=== PATIENT | male | born 1965 | race Two or more races ===

== ENCOUNTER 2018-05-05 16:35 | Emergency (ER) | payer SELFPAY ==
[~2018-05-05] VITALS: Ht 188 cm; Wt 110.0 kg
[2018-05-05] MEDS ORDERED: KETOROLAC 60MG/2ML VIAL IM ONE (17:15)
[2018-05-05 18:28] VITALS: BP 112/51
== END 2018-05-05 18:37 | disposition home or self-care (01) ==
LOC: ER 16:35
DX: S20.20XA Contusion of thorax, unspecified, initial encounter (principal); I10 Essential (primary) hypertension; Z98.890 Other specified postprocedural states; V47.5XXA Car driver injured in collision with fixed or stationary object in traffic accident, initial encounter; Y93.89 Activity, other specified; Y92.488 Other paved roadways as the place of occurrence of the external cause
CPT/HCPCS: 71101; 96372; 99283; J1885

== ENCOUNTER 2018-08-26 10:18 | Emergency (ER) | payer SELFPAY ==
[~2018-08-26] VITALS: Ht 188 cm; Wt 100.0 kg
[2018-08-26] MEDS ORDERED: IBUPROFEN 600MG TABLET PO ONE (14:30)
[2018-08-26 16:22] VITALS: BP 138/90
== END 2018-08-26 16:23 | disposition home or self-care (01) ==
LOC: ER 10:18
DX: S82.142A Displaced bicondylar fracture of left tibia, initial encounter for closed fracture (principal); I10 Essential (primary) hypertension; F12.10 Cannabis abuse, uncomplicated; H54.10 Blindness, one eye, low vision other eye, unspecified eyes; Z98.890 Other specified postprocedural states; Z87.09 Personal history of other diseases of the respiratory system; W17.89XA Other fall from one level to another, initial encounter; Y93.89 Activity, other specified; Y92.89 Other specified places as the place of occurrence of the external cause; Y99.8 Other external cause status
CPT/HCPCS: 29505; 72170; 73560; 73590; 99283; Z7610

== ENCOUNTER 2024-11-12 07:09 | Inpatient (IN) | payer MEDICAID ==
[~2024-11-12] VITALS: Ht 185.4 cm; Wt 87.5 kg
[2024-11-12 07:20] VITALS: O2SAT 98
[2024-11-12 08:06] LABS: BASOPHILS % 0.4 % (0.0-2.0); EOSINOPHILS % 0.6 % (0.0-5.0); HEMATOCRIT. 43.4 % (42.0-52.0); HEMOGLOBIN. 14.5 g/dL (14.0-18.0); LYMPHOCYTES % 22.8 % (20.0-50.0); MEAN PLATELET VOLUME 7.9 fl (7.4-10.4); MONOCYTES % 7.9 % (2.0-8.0); NEUTROPHILS % 68.3 % (40.0-76.0); PLATELET 250 x1000/uL (130-400); RED BLOOD CELL COUNT 4.70 mill/uL (4.7-6.1); RED CELL DISTRIBUTION WIDTH 13.6 % (11.6-14.6)
[2024-11-12 08:35] LABS: CREATININE 0.9 mg/dL (0.6-1.3); UREA NITROGEN BLOOD 8 mg/dL (9-23)
[2024-11-12] MEDS ORDERED: HYDRALAZINE 20MG/ML VIAL IV ONE (09:30)
[2024-11-12] MEDS ORDERED: HYDRALAZINE 20MG/ML VIAL ONE (10:58)
[2024-11-12] MEDS: HYDRALAZINE 20MG/ML VIAL IV NR (11:04)
[2024-11-12] MEDS ORDERED: AMLO5TAB6 MT (11:50)
[2024-11-12 11:56] VITALS: BP 143/89; PULSE 85; RESP 20; TEMP 36.9; O2SAT 99
[2024-11-12 11:58] VITALS: BP 143/89; PULSE 79; RESP 20; TEMP 36.9; O2SAT 99
[2024-11-12] MEDS ORDERED: ACETAMINOPHEN 325MG TABLET PO PRN (12:00)
[2024-11-12] MEDS ORDERED: ONDANSETRON HCL 4MG/2ML INJ IV PRN (12:00)
[2024-11-12] MEDS ORDERED: CLONIDINE 0.1MG TABLET PO PRN (12:00)
[2024-11-12 12:01] VITALS: BP 143/89; PULSE 79; RESP 20; TEMP 36.974
[2024-11-12] MEDS ORDERED: NALOXONE HCL 0.4MG/ML VIAL IV PRN (12:15)
[2024-11-12] MEDS ORDERED: ENOXAPARIN 40MG/0.4ML SYR SUBCUT ONE (13:32)
[2024-11-12] MEDS: ENOXAPARIN 40MG/0.4ML SYR SUBCUT SCH (13:40)
[2024-11-12 15:54] VITALS: BP 148/88; PULSE 78; RESP 18; TEMP 36.8; O2SAT 98
[2024-11-12 20:00] VITALS: BP 150/86; PULSE 72; RESP 20; TEMP 36.8; O2SAT 97
[2024-11-12] MEDS: ZOLPIDEM TARTRATE 5MG TABLET PO PRN (23:01)
[2024-11-13] VITALS: BP 146/76; PULSE 78; RESP 18; TEMP 37; O2SAT 98
[2024-11-13 04:00] VITALS: BP 118/70; PULSE 76; RESP 18; TEMP 37; O2SAT 97
[2024-11-13] MEDS: HYDROCODONE/ACETAMINOPHEN 5/325MG TABLET PO PRN (05:44)
[2024-11-13 06:43] LABS: BASOPHILS % 0.4 % (0.0-2.0); EOSINOPHILS % 0.8 % (0.0-5.0); HEMATOCRIT. 45.5 % (42.0-52.0); HEMOGLOBIN. 15.3 g/dL (14.0-18.0); LYMPHOCYTES % 37.2 % (20.0-50.0); MEAN PLATELET VOLUME 8.2 fl (7.4-10.4); MONOCYTES % 10.1 % (2.0-8.0); NEUTROPHILS % 51.5 % (40.0-76.0); PLATELET 257 x1000/uL (130-400); RED BLOOD CELL COUNT 4.97 mill/uL (4.7-6.1); RED CELL DISTRIBUTION WIDTH 14.1 % (11.6-14.6)
[2024-11-13 06:45] LABS: CREATININE 0.9 mg/dL (0.6-1.3); UREA NITROGEN BLOOD 9 mg/dL (9-23)
[2024-11-13 07:53] LABS: CLARITY URINE CLEAR (CLEAR); COLOR URINE YELLOW (YELLOW); GLUCOSE URINE NEGATIVE (NEGATIVE); KETONES URINE TRACE (NEGATIVE); LEUKOCYTE ESTERASE URINE NEGATIVE (NEGATIVE); NITRITE URINE NEGATIVE (NEGATIVE); OCCULT BLOOD URINE NEGATIVE (NEGATIVE); PH URINE 5.5 (4.5-8.0); PROTEIN URINE TRACE (NEGATIVE); SPECIFIC GRAVITY URINE 1.019 (1.005-1.030); UROBILINOGEN URINE 0.2 E.U./dL (0.2-1.0)
[2024-11-13 08:06] VITALS: BP 123/84; PULSE 69; RESP 18; TEMP 36.4; O2SAT 99
[2024-11-13 08:13] LABS: *AMPHETAMINES SCREEN URINE NEGATIVE (NEGATIVE); *BARBITURATES SCREEN URINE NEGATIVE (NEGATIVE); *BENZODIAZEPINES SCREEN URINE NEGATIVE (NEGATIVE); *COCAINE SCREEN URINE NEGATIVE (NEGATIVE); CANNABINOID URINE SCREEN PRESUMPTIVE POSITIVE (NEGATIVE); ECSTASY MDMA SCREEN URINE NEGATIVE (NEGATIVE); METHADONE URINE SCREEN NEGATIVE (NEGATIVE); OPIATES URINE SCREEN NEGATIVE (NEGATIVE); PHENCYCLIDINE URINE SCREEN NEGATIVE (NEGATIVE)
[2024-11-13] MEDS: AMLODIPINE 5MG TABLET PO SCH (08:29)
[2024-11-13] MEDS: PANTOPRAZOLE SODIUM 40 MG/VIAL IV SCH (08:29)
[2024-11-13 09:10] LABS: MUCUS URINE 4+ /lpf (NONE/TRACE)
[2024-11-13 09:11] LABS: RBC URINE NONE SEEN /hpf (0-2); SQUAMOUS EPITHELIAL CELL URINE FEW /lpf (RARE/1+); WBC URINE 0-2 /hpf (0-2)
[2024-11-13 09:12] LABS: BACTERIA URINE NONE SEEN; HYALINE CASTS URINE 0-5 /lpf
[2024-11-13 12:01] VITALS: BP 146/96; PULSE 79; RESP 18; TEMP 36.1; O2SAT 99
[2024-11-13 15:53] VITALS: BP 141/96; PULSE 80; RESP 20; TEMP 36.3; O2SAT 100
[2024-11-13 20:45] VITALS: BP 115/77; PULSE 71; RESP 19; TEMP 36.6; O2SAT 97
[2024-11-14] VITALS: BP 128/73; PULSE 70; RESP 19; TEMP 36.6; O2SAT 97
[2024-11-14 04:00] VITALS: BP_SYST 128; BP_DIAS 59; BP_DIAS 89; PULSE 68; RESP 18; TEMP 36.4; O2SAT 97
[2024-11-14 07:52] LABS: BASOPHILS % 0.4 % (0.0-2.0); EOSINOPHILS % 0.8 % (0.0-5.0); HEMATOCRIT. 45.4 % (42.0-52.0); HEMOGLOBIN. 15.3 g/dL (14.0-18.0); LYMPHOCYTES % 27.8 % (20.0-50.0); MEAN PLATELET VOLUME 8.3 fl (7.4-10.4); MONOCYTES % 10.7 % (2.0-8.0); NEUTROPHILS % 60.3 % (40.0-76.0); PLATELET 238 x1000/uL (130-400); RED BLOOD CELL COUNT 4.94 mill/uL (4.7-6.1); RED CELL DISTRIBUTION WIDTH 14.1 % (11.6-14.6)
[2024-11-14 08:00] VITALS: BP 151/51; PULSE 97; RESP 20; TEMP 36.4; O2SAT 98
[2024-11-14 08:14] LABS: CREATININE 0.9 mg/dL (0.6-1.3); UREA NITROGEN BLOOD 7 mg/dL (9-23)
[2024-11-14] MEDS ORDERED: GABA-1180 MT (09:34)
[2024-11-14] MEDS ORDERED: HYDR-4001 MT (09:34)
[2024-11-14 11:42] VITALS: BP 151/51; PULSE 97; RESP 20; TEMP 97.5
[2024-11-14 12:00] VITALS: BP 144/100; PULSE 82; RESP 20; TEMP 36.6; O2SAT 97
[2024-11-14] MEDS: MAGNESIUM/ALUMINUM HYDROXIDE/SIMETHICONE 30ML UDC PO PRN (15:54)
[2024-11-14 16:00] VITALS: BP 132/71; PULSE 75; RESP 20; TEMP 36.4; O2SAT 98
== END 2024-11-14 16:40 | disposition home or self-care (01) | DRG 347 ==
LOC: ER 07:09 → 7WST 09:50 → EDBEDREQ 09:53 → EDBEDREQTM 09:53 → ENRESERV 10:00
PROVIDERS: ADMIT Internal Medicine; ATTEND Internal Medicine
DX: M48.061 Spinal stenosis, lumbar region without neurogenic claudication (principal); G82.20 Paraplegia, unspecified; M47.812 Spondylosis without myelopathy or radiculopathy, cervical region; M48.02 Spinal stenosis, cervical region; G95.20 Unspecified cord compression; G89.29 Other chronic pain; I10 Essential (primary) hypertension; Z79.899 Other long term (current) drug therapy
CPT/HCPCS: 36415; 72141; 72146; 72148; 74018; 80048; 80305; 81003; 84443; 85025; 93005; 93970; 97161; 99285; J0360; J1650; J2470